=== PATIENT | female | born 1945 | race Caucasian/White ===

== ENCOUNTER 2019-09-04 14:50 | Emergency (ER) | payer MEDICARE ==
[~2019-09-04] VITALS: Ht 152.4 cm; Wt 68.0 kg
[2019-09-04 15:55] VITALS: BP_SYST 160
--- NOTE | 2019-09-04 16:35 | NUR ---
Patient left without being seen.
[2019-09-05] MEDS ORDERED: FLUT16SP24 INH (09:49)
[2019-09-05] MEDS ORDERED: SIMV40TA2 PO (09:49)
== END 2019-09-04 16:35 | disposition left against medical advice (07) ==
LOC: SED 14:50
DX: R42 Dizziness and giddiness (principal); Z53.21 Procedure and treatment not carried out due to patient leaving prior to being seen by health care provider

== ENCOUNTER 2019-09-05 09:06 | Emergency (ER) | payer OTHER, MEDICARE ==
[~2019-09-05] VITALS: Ht 152.4 cm; Wt 68.0 kg
[2019-09-05 09:07] VITALS: BP_SYST 116
[2019-09-05] MEDS ORDERED: FLUT16SP24 INH (09:49)
[2019-09-05] MEDS ORDERED: SIMV40TA2 PO (09:49)
[2019-09-05 10:15] LABS: BASOPHILS # (AUTO) 0.1 K/uL (0.0-0.2); BASOPHILS % (AUTO) 0.8 % (0.0-2.0); EOSINOPHILS % (AUTO) 0.4 % (0.0-4.0); HEMATOCRIT 41.3 % (36-48); LYMPHOCYTES # (AUTO) 2.2 K/uL (1.0-5.5); LYMPHOCYTES % (AUTO) 20.6 % (20.5-51.5); MEAN CORPUSCULAR HEMOGLOBIN 32 pg (27-31); MEAN CORPUSCULAR HGB CONC 34 % (32-36); MEAN CORPUSCULAR VOLUME 94 fL (79.0-98.0); MONOCYTES # (AUTO) 0.7 K/uL (0.0-1.0); MONOCYTES % (AUTO) 6.5 % (1.7-9.3); NEUTROPHILS # (AUTO) 7.6 K/uL (1.8-7.7); NEUTROPHILS % (AUTO) 71.7 % (40.0-70.0); PLATELET COUNT (AUTO) 342 K/uL (130-430); RED CELL DISTRIBUTION WIDTH 13.7 % (9.0-15.0); WHITE BLOOD COUNT (AUTO) 10.7 K/uL (4.8-10.8)
[2019-09-05 10:28] LABS: ANION GAP 7 (5-15); CALCIUM 9.5 mg/dL (8.4-11.0); CHLORIDE 103 mmol/L (98-107); GLUCOSE 116 mg/dL (70-99); POTASSIUM 3.3 mmol/L (3.5-5.1); SODIUM SERUM 136 mmol/L (136-145); UREA NITROGEN, BLOOD 10 mg/dL (8-21)
[2019-09-05 10:32] LABS: ALANINE AMINOTRANSFERASE 38 U/L (12-78); ALBUMIN 3.8 g/dL (3.4-4.8); ASPARTATE AMINOTRANSFERASE 28 U/L (10-37); PROTHROMBIN TIME 10.5 SECS (9.5-12.5); TOTAL BILIRUBIN 0.3 mg/dL (0.0-1.0)
[2019-09-05 11:32] VITALS: BP_SYST 152
== END 2019-09-05 11:32 | disposition home or self-care (01) ==
LOC: SED 09:06
DX: R42 Dizziness and giddiness (principal)
CPT/HCPCS: 36415; 70450-TC; 71045; 80053; 83880; 84484; 85025; 85610-TC; 85730-TC; 99285

== ENCOUNTER 2023-11-15 09:20 | Emergency (ER) | payer OTHER, MEDICARE ==
[~2023-11-15] VITALS: Ht 152.4 cm; Wt 65.8 kg
[~2023-11-15 09:20] MED LIST: FLUT16SP24 INH; SIMV-345 PO
[2023-11-15 09:29] VITALS: BP_SYST 140; PULSE 87; RESP 18; TEMP 98.3; O2SAT 98
[2023-11-15 10:27] LABS: BASOPHILS # (AUTO) 0.1 K/uL (0.0-0.2); BASOPHILS % (AUTO) 0.6 % (0.0-2.0); EOSINOPHILS # (AUTO) 0.2 K/uL (0.0-0.4); EOSINOPHILS % (AUTO) 1.3 % (0.0-4.0); HEMATOCRIT 40.9 % (36-48); LYMPHOCYTES # (AUTO) 2.5 K/uL (1.0-5.5); LYMPHOCYTES % (AUTO) 19.8 % (20.5-51.5); MEAN CORPUSCULAR HEMOGLOBIN 33 pg (27-31); MEAN CORPUSCULAR HGB CONC 34 % (32-36); MEAN CORPUSCULAR VOLUME 95 fL (79.0-98.0); MONOCYTES # (AUTO) 1.2 K/uL (0.0-1.0); MONOCYTES % (AUTO) 9.7 % (1.7-9.3); NEUTROPHILS # (AUTO) 8.6 K/uL (1.8-7.7); NEUTROPHILS % (AUTO) 68.6 % (40.0-70.0); PLATELET COUNT (AUTO) 358 K/uL (130-430); RED BLOOD CELL COUNT(AUTO) 4.31 MIL/uL (4.2-6.2); RED CELL DISTRIBUTION WIDTH 13.5 % (9.0-15.0); WHITE BLOOD COUNT (AUTO) 12.5 K/uL (4.8-10.8)
[2023-11-15 10:45] LABS: ANION GAP 12 (5-15); CALCIUM 9.3 mg/dL (8.4-11.0); CARBON DIOXIDE 27 mmol/L (23-29); CHLORIDE 102 mmol/L (98-107); CREATININE 0.89 mg/dL (0.55-1.30); GLUCOSE 114 mg/dL (74-106); POTASSIUM 3.1 mmol/L (3.5-5.1); SODIUM SERUM 141 mmol/L (136-145); UREA NITROGEN, BLOOD 10 mg/dL (8-21)
[2023-11-15] MEDS ORDERED: CEFU250T85 PO (11:46)
[2023-11-15] MEDS ORDERED: ANURH RC (11:46)
[2023-11-15 12:11] VITALS: BP_SYST 134; PULSE 85; RESP 18; TEMP 98.3; O2SAT 97
== END 2023-11-15 12:00 | disposition home or self-care (01) ==
LOC: SED 09:20
DX: K92.2 Gastrointestinal hemorrhage, unspecified (principal); J18.9 Pneumonia, unspecified organism; R10.30 Lower abdominal pain, unspecified; Z79.899 Other long term (current) drug therapy
CPT/HCPCS: 36415; 80048; 85025; 99284